=== PATIENT | female | born 1945 | race African-American/Black ===

== ENCOUNTER → 2017-03-20 | Outpatient (CLI) | payer MEDICARE ==
--- NOTE | 2017-03-20 08:42 | RAD ---
Indication claudication. Grayscale color Doppler and spectral imaging was performed targeted to the major arteries of the lower extremities. On the right there is a normal triphasic waveform in the common femoral artery. Proximally in the superficial femoral artery there is a normal triphasic waveform. The mid and distal superficial femoral artery have biphasic waveforms indicative of relatively mild disease proximally in the SFA. A biphasic waveform is seen in the popliteal artery. Biphasic waveforms are seen in the posterior tibial artery proximally and distally with a biphasic waveform in the peroneal and the anterior tibial and dorsal pedal arteries. On the left a biphasic waveform is seen in the common femoral artery indicative of a component of inlet disease. This transitions to a triphasic waveform in the proximal SFA. In the mid and distal SFA there are biphasic waveforms. Similar biphasic waveform is seen in the popliteal artery. The posterior tibial artery proximally and distally is biphasic as is the peroneal. The anterior tibial artery and dorsal pedal arteries are both biphasic. IMPRESSION: High-grade arterial stenosis is not seen in the major arterial vessels of either lower extremity. There is evidence for relatively mild disease in the right superficial femoral artery. There is likely mild inlet disease on the left
--- NOTE | 2017-03-20 13:10 | RAD ---
DATE: 03/20/2017 EXAM: DIGITAL SCREEN BILAT W/CAD HISTORY: Screening COMPARISON: None. This is new baseline. This study was interpreted with the benefit of Computerized Aided Detection (CAD). FINDINGS: Breast Density: FATTY The Breast Parenchyma is primarily fatty replaced. Breast parenchyma level density A.. There are possible punctate calcifications in the left breast, slightly lateral to the nipple, in the B position. A spot compression magnification image is suggested. A definite corresponding finding is not seen on the MLO view. The punctate areas of increased density may be artifactual. They could be vascular IMPRESSION.: Possible calcifications left breast. Additional imaging suggested as outlined above BI-RADS CATEGORY: 0 INCOMPLETE: NEED ADDITIONAL IMAGING EVAULATION AND/OR PRIOR MAMMOGRAMS FOR COMPARISON RECOMMENDED FOLLOW-UP: ADD ADDITIONAL IMAGING PQRS compliance statement: Patient information was entered into a reminder system with a target due date soon for the next mammogram. Mammography is a sensitive method for finding small breast cancers, but it does not detect them all and is not a substitute for careful clinical examination. A negative mammogram does not negate a clinically suspicious finding and should not result in delay in biopsying a clinically suspicious abnormality. "Our facility is accredited by the [employer] Mammography Program."
== END | disposition home or self-care (01) ==
LOC: US 06:45
PROVIDERS: ATTEND Family Medicine
DX: Z12.31 Encounter for screening mammogram for malignant neoplasm of breast (principal); I73.9 Peripheral vascular disease, unspecified
CPT/HCPCS: 93925; G0202; 77067

== ENCOUNTER → 2017-04-03 | Outpatient (CLI) | payer MEDICARE, OTHER ==
--- NOTE | 2017-04-03 10:37 | RAD ---
DATE: 04/03/2017 EXAM: DIGITAL DIAGNOSTIC LT HISTORY: Suspicious screening study COMPARISON: 03/20/2017 This study was interpreted with the benefit of Computerized Aided Detection (CAD). The breast parenchyma is primarily fatty replaced. Breast parenchyma level density A. FINDINGS: A spot compression magnification view of the left breast demonstrates no suspicious microcalcifications. The appearance on the screening study in this region was presumably artifactual. A straight mediolateral view of the left breast demonstrates a couple of scattered benign type calcifications. No suspicious microcalcifications are identified. IMPRESSION: There is no mammographic evidence of malignancy in the left breast. BI-RADS CATEGORY: 2 BENIGN FINDING(S) RECOMMENDED FOLLOW-UP: 12M 12 MONTH FOLLOW-UP PQRS compliance statement: Patient information was entered into a reminder system with a target due date for the next mammogram. Mammography is a sensitive method for finding small breast cancers, but it does not detect them all and is not a substitute for careful clinical examination. A negative mammogram does not negate a clinically suspicious finding and should not result in delay in biopsying a clinically suspicious abnormality. "Our facility is accredited by the [employer] Mammography Program."
== END | disposition home or self-care (01) ==
LOC: MAMMO 10:07
PROVIDERS: ATTEND Family Medicine
DX: R92.8 Other abnormal and inconclusive findings on diagnostic imaging of breast (principal)
CPT/HCPCS: G0206; 77065

== ENCOUNTER 2018-03-01 20:59 | Inpatient (IN) | payer MEDICARE, OTHER ==
[~2018-03-01] VITALS: Ht 175.3 cm; Wt 102.1 kg
[2018-03-01 23:06] LABS: BASO # 0.1 x10^3/uL (0.0-0.2); BASO % 1 % (0-3); EOS # 0.1 x10^3/uL (0.0-0.7); EOS % 1 % (0-3); HEMATOCRIT 40.8 % (36.0-47.0); HEMOGLOBIN 13.9 g/dL (12.0-15.5); LYMPH # 1.9 x10^3/uL (1.0-4.8); LYMPH % 22 % (24-48); MEAN CORPUSCULAR HEMOGLOBIN 30 pg (25-35); MEAN CORPUSCULAR HGB CONC 34 g/dL (31-37); MEAN CORPUSCULAR VOLUME 88 fL (79-100); MONO # 0.6 x10^3/uL (0.0-1.1); MONO % 7 % (0-9); NEUT % 70 % (31-73); PLATELET COUNT 248 x10^3/uL (140-400); RED BLOOD COUNT 4.64 x10^6/uL (3.50-5.40); RED CELL DISTRIBUTION WIDTH 14.5 % (11.5-14.5); WHITE BLOOD COUNT 8.6 x10^3/uL (4.0-11.0)
[2018-03-01] MEDS ORDERED: IV NORMAL SALINE 1000ML BAG 1,000 ML IV ONE (23:30)
--- NOTE | 2018-03-01 23:51 | RAD ---
CT HEAD WO CONTRAST Indication: syncope, no priors Exposure: One or more of the following individualized dose reduction techniques were utilized for this examination: 1. Automated exposure control 2. Adjustment of the mA and/or kV according to patient size 3. Use of iterative reconstruction technique. Comparison: None are available. Contrast: None FINDINGS: Posterior fossa is unremarkable. No evidence of acute intracranial hemorrhage or abnormal extra-axial fluid collection. No evidence of mass effect or midline shift. Ventricles are symmetric in size and configuration. Parsons-white matter distinction is intact. Visualized orbits are unremarkable. Visualized paranasal sinuses and mastoids are clear. No acute calvarial abnormality. Impression:Negative for acute intracranial hemorrhage or mass effect. Electronically signed by: Broderick Valle MD (03/01/2018 11:47 PM) [facility]
[2018-03-02] VITALS (7 sets, daily range): BP systolic 132–162; BP diastolic 60–100
[2018-03-02 00:54] LABS: CALCIUM 9.9 mg/dL (8.5-10.1); CREATININE 0.8 mg/dL (0.6-1.0); GFR 85.8
[2018-03-02 01:00] LABS: ALBUMIN 4.3 g/dL (3.4-5.0); ALBUMIN/GLOBULIN RATIO 1.2 (1.0-1.7); MAGNESIUM 1.9 mg/dL (1.8-2.4); TOTAL BILIRUBIN 0.4 mg/dL (0.2-1.0); TOTAL PROTEIN 7.8 g/dL (6.4-8.2)
--- NOTE | 2018-03-02 01:02 | PHYS DOC ---
Past Medical History Past Medical History: Diabetes-Type II, Hypertension Past Surgical History: Appendectomy, Other Additional Past Surgical Histo: R. LEG Alcohol Use: Occasionally Drug Use: None Adult General Chief Complaint Chief Complaint: SYNCOPE HPI HPI 72-year-old female presents with report of syncopal episode which occurred approximately at 2100 this evening. She reports she was playing cards in her home where he was significantly hot. Patient reports she ended up going outside and subsequently ended up passing out. Denies chest pain. Denies headache. Denies fever or chills. Denies dysuria. Patient did report some dizziness and lightheadedness. Denies leg swelling or calf tenderness. Review of Systems Review of Systems Constitutional: Denies fever or chills, reports generalized weakness. Eyes: Denies change in visual acuity, redness, or eye pain [] HENT: Denies nasal congestion or sore throat [] Respiratory: Denies cough or shortness of breath [] Cardiovascular: Denies chest pain; reports syncopal episode GI: Denies abdominal pain, nausea, vomiting, or diarrhea [] : Denies dysuria or hematuria [] Musculoskeletal: Denies back pain or joint pain [] Integument: Denies rash or skin lesions [] Neurologic: Denies headache, focal weakness or sensory changes; reports generalized weakness and syncopal episode Complete systems were reviewed and found to be within normal limits, except as documented in this note. Current Medications Current Medications Current Medications Medications (Trade) Dose Ordered Sig/Jamie Start Time Stop Time Status Last Admin Dose Admin Dextrose (Dextrose 50%-Water Syringe) 12.5 gm PRN Q15MIN PRN 03/02/18 01:15 Ondansetron HCl (Zofran) 4 mg PRN Q8HRS PRN 03/02/18 01:15 03/03/18 01:14 Sodium Chloride 1,000 ml @ 1,000 mls/hr 1X ONCE 03/01/18 23:30 03/02/18 00:29 DC 03/01/18 23:16 1,000 MLS/HR Allergies Allergies Allergies Coded Allergies Type Severity Reaction Last Updated Verified No Known Drug Allergies 03/01/18 No Physical Exam Physical Exam Constitutional: Well developed, well nourished, no acute distress, non-toxic appearance. [] HENT: Normocephalic, atraumatic, oropharynx moist, nose normal. [] Eyes: PERRL, EOMI, conjunctiva normal, no discharge. [] Neck: Normal range of motion, no tenderness, supple, no meningeal signs] Cardiovascular: Heart rate regular rhythm, no murmur [] Lungs & Thorax: Bilateral breath sounds clear to auscultation [] Abdomen: Soft, no tenderness, no masses, no pulsatile masses. [] Skin: Warm, dry, no erythema, no rash. [] Extremities: No tenderness, ROM intact, no edema. [] Neurologic: Alert and oriented X 3, normal motor function, normal sensory function, no focal deficits noted. Cerebellar function intact Psychologic: Affect normal, judgement normal, mood normal. [] Current Patient Data Vital Signs Vital Signs Date Time Temp Pulse Resp B/P (MAP) Pulse Ox O2 Delivery O2 Flow Rate FiO2 03/02/18 01:50 95 18 175/75 (108) 98 03/01/18 23:30 Room Air 03/01/18 22:57 98.4 98.4 Lab Values Laboratory Tests Test 03/01/18 23:00 03/02/18 00:30 03/02/18 01:25 White Blood Count 8.6 x10^3/uL (4.0-11.0) Red Blood Count 4.64 x10^6/uL (3.50-5.40) Hemoglobin 13.9 g/dL (12.0-15.5) Hematocrit 40.8 % (36.0-47.0) Mean Corpuscular Volume 88 fL (79-100) Mean Corpuscular Hemoglobin 30 pg (25-35) Mean Corpuscular Hemoglobin Concent 34 g/dL (31-37) Red Cell Distribution Width 14.5 % (11.5-14.5) Platelet Count 248 x10^3/uL (140-400) Neutrophils (%) (Auto) 70 % (31-73) Lymphocytes (%) (Auto) 22 % (24-48) L Monocytes (%) (Auto) 7 % (0-9) Eosinophils (%) (Auto) 1 % (0-3) Basophils (%) (Auto) 1 % (0-3) Neutrophils # (Auto) 6.0 x10^3uL (1.8-7.7) Lymphocytes # (Auto) 1.9 x10^3/uL (1.0-4.8) Monocytes # (Auto) 0.6 x10^3/uL (0.0-1.1) Eosinophils # (Auto) 0.1 x10^3/uL (0.0-0.7) Basophils # (Auto) 0.1 x10^3/uL (0.0-0.2) Sodium Level 138 mmol/L (136-145) Potassium Level 4.0 mmol/L (3.5-5.1) Chloride Level 101 mmol/L (98-107) Carbon Dioxide Level 25 mmol/L (21-32) Anion Gap 12 (6-14) Blood Urea Nitrogen 10 mg/dL (7-20) Creatinine 0.8 mg/dL (0.6-1.0) Estimated GFR (Cockcroft-Gault) 85.8 BUN/Creatinine Ratio 13 (6-20) Glucose Level 152 mg/dL (70-99) H Calcium Level 9.9 mg/dL (8.5-10.1) Magnesium Level 1.9 mg/dL (1.8-2.4) Total Bilirubin 0.4 mg/dL (0.2-1.0) Aspartate Amino Transferase (AST) 21 U/L (15-37) Alanine Aminotransferase (ALT) 30 U/L (14-59) Alkaline Phosphatase 86 U/L (46-116) Creatine Kinase 161 U/L (26-192) Creatine Kinase MB (Mass) 0.5 ng/mL (0.0-3.6) Creatine Kinase MB Relative Index 0.3 % (0-4) Troponin I Quantitative < 0.017 ng/mL (0.000-0.055) Total Protein 7.8 g/dL (6.4-8.2) Albumin 4.3 g/dL (3.4-5.0) Albumin/Globulin Ratio 1.2 (1.0-1.7) Urine Collection Type Unknown Urine Color Yellow Urine Clarity Clear Urine pH 5.5 Urine Specific [place] 1.010 Urine Protein Negative mg/dL (NEG-TRACE) Urine Glucose (UA) Negative mg/dL (NEG) Urine Ketones (Stick) Negative mg/dL (NEG) Urine Blood Negative (NEG) Urine Nitrite Negative (NEG) Urine Bilirubin Negative (NEG) Urine Urobilinogen Dipstick 0.2 mg/dL (0.2 mg/dL) Urine Leukocyte Esterase Large (NEG) Urine RBC 0 /HPF (0-2) Urine WBC 20-40 /HPF (0-4) Urine Squamous Epithelial Cells Mod /LPF Urine Renal Epithelial Cells Few /LPF Urine Bacteria Few /HPF (0-FEW) Urine Mucus Slight /LPF Laboratory Tests 03/01/18 23:00 Laboratory Tests 03/02/18 00:30 EKG EKG @ 2323: sinus arrythmia vs afib, baseline artifact noted, NO ST elevation noted Radiology/Procedures Radiology/Procedures PROCEDURE: CT HEAD WO CONTRAST CT HEAD WO CONTRAST Indication: syncope, no priors Exposure: One or more of the following individualized dose reduction techniques were utilized for this examination: 1. Automated exposure control 2. Adjustment of the mA and/or kV according to patient size 3. Use of iterative reconstruction technique. Comparison: None are available. Contrast: None FINDINGS: Posterior fossa is unremarkable. No evidence of acute intracranial hemorrhage or abnormal extra-axial fluid collection. No evidence of mass effect or midline shift. Ventricles are symmetric in size and configuration. Parsons-white matter distinction is intact. Visualized orbits are unremarkable. Visualized paranasal sinuses and mastoids are clear. No acute calvarial abnormality. Impression:Negative for acute intracranial hemorrhage or mass effect. Course & Med Decision Making Course & Med Decision Making Pertinent Labs and Imaging studies reviewed. (See chart for details) Patient presents with syncopal episode. Patient neurologically intact. NIHSS 0. EKG stable. CT head without acute process. Labs obtained and posted to chart. Troponin within normal limits. UA with signs of infection. Empiric antibiotics initiated. Patient requiring admission for further evaluation and treatment. Discussed with Dr. Hendrickson (PCP) who is in agreement with admission. Discussed findings and plan with patient and family, who acknowledge understanding and agreement. Dragon Disclaimer Dragon Disclaimer This electronic medical record was generated, in whole or in part, using a voice recognition dictation system. Departure Departure Impression: Primary Impression: Syncope Additional Impression: Acute UTI Disposition: ADMITTED INPATIENT Admitting Physician: Arnaldo Hendrickson Condition: STABLE Referrals: VELMA PADRON MD (PCP) Problem Qualifiers Primary Impression: Syncope Syncope type: unspecified Qualified Codes: R55 - Syncope and collapse ALIRIO SALDIVAR DO Mar 02, 2018 01:02
[2018-03-02] MEDS ORDERED: DEXTROSE 50% 25 GM / 50ML DISP.SYRIN. IV PRN (01:15)
[2018-03-02] MEDS ORDERED: ONDANSETRON PF 4 MG/2 ML VIAL. IV PRN (01:15)
[2018-03-02 01:35] LABS: BILIRUBIN,URINE NEGATIVE (NEG); CLARITY,URINE CLEAR; COLOR,URINE YELLOW; NITRITE,URINE NEGATIVE (NEG); PH,URINE 5.5; PROTEIN,URINE NEGATIVE (NEG-TRACE); UROBILINOGEN,URINE 0.2 mg/dL (0.2 mg/dL)
[2018-03-02 01:47] LABS: BACTERIA,URINE FEW /HPF (0-FEW); RBC,URINE 0 /HPF (0-2); SQUAMOUS EPITHELIAL CELL,UR MOD /LPF; WBC,URINE 20-40 /HPF (0-4)
--- NOTE | 2018-03-02 07:19 | EKG ---
[facility] [address] [place] [address] Test Date: 2018-03-01 Test Time: 23:23:26 Pat Name: CASSANDRA KAY Department: Room: 432 1 Gender: Female Flower Grader: : 1945 Requested By: ALIRIO SALDIVAR Order Number: [id number] Reading MD: Marty Barrett MD Measurements Intervals [place] Rate: 97 P: IA: QRS: 5 QRSD: 84 T: 65 QT: 370 QTc: 474 Interpretive Statements ATRIAL FIBRILLATION WITH CONTROLLED VENTRICULAR RESPONSE NON-SPECIFIC ST/T CHANGES Electronically Signed On 03-03-2018 10:06:17 CDT by Marty Barrett MD
[2018-03-02] MEDS ORDERED: ASPIRIN 325 MG TABLET PO ONE (08:00)
[2018-03-02] MEDS: INSULIN LISPRO 300 UNITS/3 ML INSULN.PEN. SQ SCH ×3 (08:00→17:00)
[2018-03-02] MEDS ORDERED: cefTRIAXone IV Push 1 GM VIAL. IVP SCH (09:00)
--- NOTE | 2018-03-02 09:04 | RAD ---
Chest AP portable at 2341: Reason for examination: Chest pain and syncope. The heart size is normal. Mediastinum is unremarkable. Lung barroso are clear. No acute bony abnormalities are seen. Impression: No acute cardiopulmonary disease. Electronically signed by: Alma Rosa Gregory MD (03/02/2018 9:00 AM) [facility]
[2018-03-02] MEDS: LOSARTAN POTASSIUM 50 MG TABLET. PO SCH (13:07)
[2018-03-02] MEDS: PIOGLITAZONE 15 MG TABLET. PO SCH (13:07)
[2018-03-02] MEDS: hydroCHLOROthiazide 25 MG TABLET PO SCH (13:07)
[2018-03-02] MEDS: amLODIPine BESYLATE 10 MG TABLET PO SCH (13:08)
[2018-03-02] MEDS: METOPROLOL TART IMMED RELEASE 50 MG TABLET. PO SCH ×2 (13:08→20:57)
--- NOTE | 2018-03-02 14:05 | HP ---
ADMIT DATE: 03/02/2018 ADMISSION DIAGNOSES: Syncope, possible urinary tract infection, possible sepsis. HISTORY OF PRESENT ILLNESS: This is a 72-year-old female who was playing cards at home last evening. She says it was somewhat hot. She got up to go outside and had a syncopal episode. She has no recollection of the episode. EMS was summoned and she was brought to the Emergency Room for further evaluation and treatment. She denies any recent lightheadedness or dizziness, although she thinks the heat may have something to do with her spell. She has not had any chest pain or cardiac symptoms. She has not had any recent neurologic symptoms. She denies any vertiginous symptoms. She did not have any nausea or vomiting. She sees Dr. England routinely in the office and has a routine appointment for next month. Since her last visit with Dr. England she had some shoulder pain, evaluated by Dr. Mendoza, thought to be tendinitis and responded to a cortisone shot. That was her left shoulder. She denies any left-sided chest type pain since though. PAST MEDICAL HISTORY: Significant for type 2 diabetes since 1990, hypertension, osteoarthritis, hyperlipidemia, vitamin D deficiency, and obesity. Her colonoscopy was done in 2013, Pneumovax in 2013 with Prevnar in 2016, DEXA 2014, mammogram 2016. PAST SURGICAL HISTORY: Includes appendectomy and ORIF right ankle 01/2015. FAMILY HISTORY: Mother is . SOCIAL HISTORY: She is a smoker, typically 5 cigarettes a day or less, or a pack a week. Alcohol, she stopped drinking in 2015. She is not and lives with her daughter. ALLERGIES: She has no known drug allergies. ROUTINE MEDICATIONS: Include glimepiride 4 mg b.i.d., amlodipine/valsartan 10/320 mg 1 daily, simvastatin 20 mg at bedtime, vitamin D 50,000 units weekly, metoprolol tartrate 100 mg b.i.d., metformin 1000 mg b.i.d., pioglitazone 15 mg daily, HCTZ 25 mg daily. REVIEW OF SYSTEMS: CONSTITUTIONAL: No fever, chills or weight loss. HEENT: No change in vision or hearing. CARDIAC: No recent chest pain or palpitation. PULMONARY: No cough or shortness of breath. GASTROINTESTINAL: No nausea, vomiting or change in bowels. GENITOURINARY: Denies dysuria, but UA is abnormal. MUSCULOSKELETAL: Mild arthritic changes of her shoulder and hip on prior x-rays. SKIN: No worrisome lesions. NEUROLOGIC: No prior episodes of syncope, no vertiginous symptoms, no seizure history. PHYSICAL EXAMINATION: VITAL SIGNS: She was tachycardic at 2:00 a.m. and 3:00 a.m. this morning, but she thinks that was getting settled into her room. Blood pressure has been elevated, most recently 154/82, respiratory rate is normal. Room air oxygen saturation is normal. GENERAL: She is in no acute distress, alert and oriented. HEENT: Unremarkable. Conjunctivae are clear. Ocular muscles are intact. No sinus congestion. Mucous membranes are moist. NECK: Supple, without mass or bruit. HEART: Regular rate and rhythm without murmur noted. LUNGS: Clear to auscultation. ABDOMEN: Soft, nondistended, nontender, without any masses. EXTREMITIES: All move appropriately. There is no clubbing, cyanosis or edema. MUSCULOSKELETAL: No effusions. SKIN: Normal turgor. NEUROLOGIC: Nonfocal. Cranial nerves are grossly intact. LABORATORY DATA: CBC is normal. Chemistries are unremarkable other than a blood sugar of 152 and 125. Troponin x 3 is negative. Urinalysis shows a large amount of leukocyte esterase and 20-40 wbc's, a few bacteria, but there is also moderate number of squamous epithelial cells, so it may be a contaminant. EKG does not show any acute changes. Chest x-ray is unremarkable. CT head is unremarkable. The paranasal sinuses and mastoids are clear. ASSESSMENT: 1. Syncope, unclear etiology. 2. Possible urinary tract infection. 3. Hypertension. 4. Type 2 diabetes. 5. Osteoarthritis. 6. Hyperlipidemia. 7. Vitamin D deficiency. PLAN: She is admitted. 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 We will check an echo and get a Cardiology consult. We will resume her home medications. Awaiting urine culture, she is being covered with ceftriaxone in the meantime. W Ewa MACIAS MD DR: GERI/mariela JOB#: [id number] / [id number]
[2018-03-02] MEDS: GLIMEPIRIDE 2 MG TABLET. PO SCH (17:53)
[2018-03-02] MEDS: AMOXICILLIN/K CLAV 875/125MG TABLET. PO SCH (20:56)
[2018-03-02] MEDS: LACTOBACILLUS RHAMNOSUS GG 1 CAPSULE. PO SCH (20:56)
[2018-03-02] MEDS ORDERED: SIMVASTATIN 20 MG TABLET PO SCH (21:00)
[2018-03-03 01:32] LABS: CHOLESTEROL/HDL RATIO 2.3
[2018-03-03 03:00] VITALS: BP 132/58
[2018-03-03 07:00] VITALS: BP 165/70
--- NOTE | 2018-03-03 07:30 | PDOC ---
PROGRESS NOTES Subjective Subjective Patient without complaint, feels fine. No lightheadedness. Objective Objective Vital Signs Date Time Temp Pulse Resp B/P (MAP) Pulse Ox O2 Delivery O2 Flow Rate FiO2 03/03/18 03:00 97.7 59 18 132/58 (82) 96 Room Air 97.7 Intake and Output 03/03/18 07:01 Intake Total 240 ml Balance 240 ml Intake Oral 240 ml # Voids 8 Physical Exam Abdomen: Normal bowel sounds, Soft, No tenderness Heart: Regular rate Extremities: No edema General: Alert, Oriented X3, No acute distress Lungs: Clear to auscultation Assessment Assessment Problems Medical Problems: (1) Acute UTI Status: Acute (2) Syncope Status: Acute Plan Plan of Care 1. Syncope - stable since admission. Telemetry and lab unremarkable and no further symptom. Dr Schwartz plans echo and tilt-table today, anticipate patient may be ready for discharge home later today if testing is WNL. 2. DM2 - well controlled, continue home meds. 3. HTN - controlled, continue present meds. 4. possible UTI - UA with WBC's but also squamous cells and patient asymptomatic. Await final urine culture results. 5. hyperlipidemia - well controlled, continue her usual statin. Comment Review of Relevant I have reviewed the following items daina (where applicable) has been applied. Labs Laboratory Tests Test 03/01/18 23:00 03/02/18 00:30 03/02/18 01:25 03/02/18 04:10 White Blood Count 8.6 x10^3/uL (4.0-11.0) Red Blood Count 4.64 x10^6/uL (3.50-5.40) Hemoglobin 13.9 g/dL (12.0-15.5) Hematocrit 40.8 % (36.0-47.0) Mean Corpuscular Volume 88 fL (79-100) Mean Corpuscular Hemoglobin 30 pg (25-35) Mean Corpuscular Hemoglobin Concent 34 g/dL (31-37) Red Cell Distribution Width 14.5 % (11.5-14.5) Platelet Count 248 x10^3/uL (140-400) Neutrophils (%) (Auto) 70 % (31-73) Lymphocytes (%) (Auto) 22 % (24-48) Monocytes (%) (Auto) 7 % (0-9) Eosinophils (%) (Auto) 1 % (0-3) Basophils (%) (Auto) 1 % (0-3) Neutrophils # (Auto) 6.0 x10^3uL (1.8-7.7) Lymphocytes # (Auto) 1.9 x10^3/uL (1.0-4.8) Monocytes # (Auto) 0.6 x10^3/uL (0.0-1.1) Eosinophils # (Auto) 0.1 x10^3/uL (0.0-0.7) Basophils # (Auto) 0.1 x10^3/uL (0.0-0.2) Sodium Level 138 mmol/L (136-145) Potassium Level 4.0 mmol/L (3.5-5.1) Chloride Level 101 mmol/L (98-107) Carbon Dioxide Level 25 mmol/L (21-32) Anion Gap 12 (6-14) Blood Urea Nitrogen 10 mg/dL (7-20) Creatinine 0.8 mg/dL (0.6-1.0) Estimated GFR (Cockcroft-Gault) 85.8 BUN/Creatinine Ratio 13 (6-20) Glucose Level 152 mg/dL (70-99) Calcium Level 9.9 mg/dL (8.5-10.1) Magnesium Level 1.9 mg/dL (1.8-2.4) Total Bilirubin 0.4 mg/dL (0.2-1.0) Aspartate Amino Transf (AST/SGOT) 21 U/L (15-37) Alanine Aminotransferase (ALT/SGPT) 30 U/L (14-59) Alkaline Phosphatase 86 U/L (46-116) Creatine Kinase 161 U/L (26-192) Creatine Kinase MB (Mass) 0.5 ng/mL (0.0-3.6) Creatine Kinase MB Relative Index 0.3 % (0-4) Troponin I Quantitative < 0.017 ng/mL (0.000-0.055) < 0.017 ng/mL (0.000-0.055) Total Protein 7.8 g/dL (6.4-8.2) Albumin 4.3 g/dL (3.4-5.0) Albumin/Globulin Ratio 1.2 (1.0-1.7) Urine Collection Type Unknown Urine Color Yellow Urine Clarity Clear Urine pH 5.5 Urine Specific Bethany 1.010 Urine Protein Negative mg/dL (NEG-TRACE) Urine Glucose (UA) Negative mg/dL (NEG) Urine Ketones (Stick) Negative mg/dL (NEG) Urine Blood Negative (NEG) Urine Nitrite Negative (NEG) Urine Bilirubin Negative (NEG) Urine Urobilinogen Dipstick 0.2 mg/dL (0.2 mg/dL) Urine Leukocyte Esterase Large (NEG) Urine RBC 0 /HPF (0-2) Urine WBC 20-40 /HPF (0-4) Urine Squamous Epithelial Cells Mod /LPF Urine Renal Epithelial Cells Few /LPF Urine Bacteria Few /HPF (0-FEW) Urine Mucus Slight /LPF Triglycerides Level 83 mg/dL (0-150) Cholesterol Level 145 mg/dL (0-200) LDL Cholesterol, Calculated 66 mg/dL (0-100) VLDL Cholesterol, Calculated 17 mg/dL (0-40) Non-HDL Cholesterol Calculated 83 mg/dL (0-129) HDL Cholesterol 62 mg/dL (40-60) Cholesterol/HDL Ratio 2.3 Test 03/02/18 07:20 03/02/18 07:56 03/02/18 11:52 03/02/18 20:25 Troponin I Quantitative < 0.017 ng/mL (0.000-0.055) Thyroid Stimulating Hormone (TSH) 0.474 uIU/mL (0.358-3.74) Glucose (Fingerstick) 125 mg/dL (70-99) 165 mg/dL (70-99) 191 mg/dL (70-99) Laboratory Tests Test 03/02/18 07:56 03/02/18 11:52 03/02/18 20:25 Glucose (Fingerstick) 125 mg/dL (70-99) 165 mg/dL (70-99) 191 mg/dL (70-99) Medications Current Medications Sodium Chloride 1,000 ml @ 1,000 mls/hr 1X ONCE IV Last administered on at 23:16; Start 03/01/18 at 23:30; Stop 03/02/18 at 00:29; Status DC Ondansetron HCl (Zofran) 4 mg PRN Q8HRS PRN IV NAUSEA/VOMITING 1ST CHOICE; Start 03/02/18 at 01:15; Stop 03/03/18 at 01:15; Status DC Insulin Human Lispro (HumaLOG) 0-5 UNITS TIDWMEALS SQ Last administered on 03/02at 13:17; Start 03/02/18 at 08:00 Dextrose (Dextrose 50%-Water Syringe) 12.5 gm PRN Q15MIN PRN IV SEE COMMENTS; Start 03/02/18 at 01:15 Ceftriaxone Sodium 1 gm/ Dextrose 50 ml @ 100 mls/hr Q24H IV ; Start 03/02/18 at 07:30; Status UNV Aspirin (Odalis Aspirin) 325 mg 1X ONCE PO Last administered on 03/02/18at 10:18 ; Start 03/02/18 at 08:00; Stop 03/02/18 at 08:01; Status DC Ceftriaxone Sodium (Rocephin) 1 gm Q24H IVP Last administered on 03/02/18at 10: 19; Start 03/02/18 at 09:00; Stop 03/02/18 at 15:56; Status DC Amlodipine Besylate (Norvasc) 10 mg DAILY PO Last administered on 03/02/18at 13: 08; Start 03/02/18 at 12:00 Losartan Potassium (Cozaar) 100 mg DAILY PO Last administered on 03/02/18at 13: 07; Start 03/02/18 at 12:00 Simvastatin (Zocor) 20 mg HS PO Last administered on 03/02/18at 20:57; Start at 21:00 Glimepiride (Amaryl) 4 mg BIDWMEALS PO Last administered on 03/02/18at 17:53; Start 03/02/18 at 17:00 Metoprolol Tartrate (Lopressor) 100 mg BID PO Last administered on 03/02/18at 20 :57; Start 03/02/18 at 12:00 Pioglitazone HCl (Actos) 15 mg DAILY PO Last administered on 03/02/18at 13:07; Start 03/02/18 at 12:30 Hydrochlorothiazide (Hydrodiuril) 25 mg DAILY PO Last administered on at 13:07; Start 03/02/18 at 12:30 Lactobacillus Rhamnosus (Culturelle) 1 cap BID PO Last administered on at 20:56; Start 03/02/18 at 21:00 Amoxicillin/ Clavulanate Potassium (Augmentin 875/ 125mg) 1 tab BID PO Last administered on 03/02/18at 20:56; Start 03/02/18 at 21:00 Vitals/I & O Vital Sign - Last 24 Hours 03/02/18 03/02/18 03/02/18 03/02/18 08:00 11:00 13:07 13:08 Temp 98.0 98.0 Pulse 78 78 78 Resp 18 B/P (MAP) 154/76 (102) 154/76 154/76 Pulse Ox 99 O2 Delivery Room Air Room Air 03/02/18 03/02/18 03/02/18 03/02/18 13:08 15:00 19:00 20:05 Temp 98.2 98.1 98.2 98.1 Pulse 78 68 73 Resp 18 18 B/P (MAP) 154/76 151/78 (102) 161/78 (105) Pulse Ox 99 98 O2 Delivery Room Air Room Air Room Air 03/02/18 03/02/18 03/03/18 20:57 23:00 03:00 Temp 97.7 97.7 97.7 97.7 Pulse 68 58 59 Resp 18 18 B/P (MAP) 151/78 132/60 (84) 132/58 (82) Pulse Ox 99 96 O2 Delivery Room Air Room Air Intake and Output 03/02/18 03/02/18 03/03/18 15:01 23:01 07:01 Intake Total 240 ml Balance 240 ml VELMA PADRON MD Mar 03, 2018 07:30
[2018-03-03] MEDS: INSULIN LISPRO 300 UNITS/3 ML INSULN.PEN. SQ SCH ×2 (08:00→12:00)
[2018-03-03] MEDS: GLIMEPIRIDE 2 MG TABLET. PO SCH (08:29)
[2018-03-03] MEDS: AMOXICILLIN/K CLAV 875/125MG TABLET. PO SCH (08:29)
[2018-03-03] MEDS: PIOGLITAZONE 15 MG TABLET. PO SCH (08:29)
[2018-03-03] MEDS: LACTOBACILLUS RHAMNOSUS GG 1 CAPSULE. PO SCH (08:29)
[2018-03-03] MEDS: METOPROLOL TART IMMED RELEASE 50 MG TABLET. PO SCH (08:30)
[2018-03-03] MEDS: hydroCHLOROthiazide 25 MG TABLET PO SCH (08:30)
[2018-03-03] MEDS: LOSARTAN POTASSIUM 50 MG TABLET. PO SCH (08:30)
[2018-03-03] MEDS: amLODIPine BESYLATE 10 MG TABLET PO SCH (08:30)
--- NOTE | 2018-03-03 12:05 | CARD ---
MR#: [id number] Date of Study: 03/03/2018 Ordering Physician: JA SCHWARTZ Referring Physician: Kristina SHEPPARD: Allie Donato RN APPROVED REPORT EXAM Tilt Table syncope Attending Nurse: Allie Donato RN HISTORY The Patient is a 72 year-old female with a history of DM and a recent syncopal episode INDICATIONS 1039 laid down flat PROCEDURE After explaining the risks, benefits, and alternative options, informed consent was obtained from the patient. Base - lineRhythm: SinusHR: 63 bpmBP: 161/51lbPcJ7 Sat: 98 % [id number]: SinusHR: 61 bpmBP: 158/49htYlM2 Sat: 97 % Vtck9250Rfgwhg: SinusHR: 62 bpmBP: 166/94edLeH3 Sat: 100 % 80' [id number]: 75 bpm 80' Bvxw9879Gainic: Sinus with pvcHR: 87 bpmBP: 156/69ddXhM8 Sat: 98 % 80' Peal9194Ivlbqp: Sinus with pvcHR: 99 bpmBP: 161/06tnSsU0 Sat: 98 % 80' Tilt11:25Rhythm: Sinus with pvcHR: 108 bpmBP: 153/73xjFcH6 Sat: 98 % 80' Qeao4069Krjzux: Sinus with pvcHR: 108 bpmBP: 155/97xdHwR8 Sat: 98 % 80' Gylh1486Pkwupy: SinusHR: 113 bpmBP: 146/91erAyT4 Sat: 98 % 80' Gfmz1587Fgqatr: SinusHR: 114 bpmBP: 145/66jqBiE7 Sat: 98 % Ybsi7156Wpjzir: SinusHR: 87 bpmBP: 141/16woWiK3 Sat: 98 % CONCLUSION No dizziness or syncope noted, Dr Schwartz in attendance throughout. This is a negative Tilt Table Test for neurocardiogenic syncope Signed by : Ja Schwartz MD Electronically Approved : 03/03/2018 12:03:45
[2018-03-03 15:00] VITALS: BP 147/84
--- NOTE | 2018-03-03 17:19 | CARD ---
MR#: [id number] Date of Study: 03/03/2018 Ordering Physician: Celso MACIAS, Referring Physician: Celso MACIAS Tech: Jaycee Dukes RDCS APPROVED REPORT EXAM: Two-dimensional and M-mode echocardiogram with Doppler and color Doppler. Other Information Quality : Good INDICATION Syncope 2D DIMENSIONS RVDd3.6 (2.9-3.5cm)Left Atrium(2D)4.2 (1.6-4.0cm) IVSd1.5 (0.7-1.1cm)Aortic Root(2D)2.5 (2.0-3.7cm) LVDd4.5 (3.9-5.9cm)LVOT Diameter2.0 (1.8-2.4cm) PWd1.3 (0.7-1.1cm)LVDs3.0 (2.5-4.0cm) FS (%) 33.1 %SV56.2 ml LVEF(%)60.0 (>50%) Aortic Valve AoV Peak Chay.147.5cm/sAoV VTI35.5cm AO Peak GR.8.7mmHgLVOT Peak Chay.88.0cm/s LVOT VTI 19.97cmAO Mean GR.5mmHg OK (VMAX)1.63yx8WPR (VTI)1.81cm2 Mitral Valve MV E Sofnwiyj23.0cm/sMV DECEL MXPG200sz MV A Uapcdszo57.1cm/sMV SGV14ue E/A Ratio0.8MVA (PHT)2.31cm2 TDI E/Lateral E'12.6E/Medial E'7.8 Pulmonary Vein S1 Bqselkaz35.9cm/sD2 Vnelawyp30.9cm/s LEFT VENTRICLE The left ventricle is normal size. There is mild concentric left ventricular hypertrophy. The left ve ntricular systolic function is normal and the ejection fraction is 60%. There is normal LV segmental wall motion. Transmitral Doppler flow pattern is Grade I-abnormal relaxation pattern. RIGHT VENTRICLE The right ventricle is normal size. The right ventricular systolic function is normal. ATRIA The left atrium is mildly dilated. The right atrium size is normal. The interatrial septum is intact with no evidence for an atrial septal defect or patent foramen ovale as noted on 2-D or Doppler imagi ng. AORTIC VALVE The aortic valve is calcified but opens well. Doppler and Color Flow revealed no significant aortic r egurgitation. There is no significant aortic valvular stenosis. MITRAL VALVE The mitral valve is calcified but opens well. There is no evidence of mitral valve prolapse. There is no mitral valve stenosis. Doppler and Color-flow revealed trace mitral regurgitation. TRICUSPID VALVE The tricuspid valve is normal in structure and function. Doppler and Color Flow revealed no tricuspid valve regurgitation noted. There is no tricuspid valve stenosis. PULMONIC VALVE The pulmonic valve is not well visualized. Doppler and Color Flow revealed trace pulmonic valvular re gurgitation. There is no pulmonic valvular stenosis. GREAT VESSELS The aortic root is normal in size. The ascending aorta is normal in size. The IVC was not visualized. PERICARDIAL EFFUSION There is no evidence of significant pericardial effusion. Critical Notification Critical Value: No <Conclusion> The left ventricular systolic function is normal and the ejection fraction is 60%. Transmitral Doppler flow pattern is Grade I-abnormal relaxation pattern. There is mild concentric left ventricular hypertrophy. The left atrium is mildly dilated. The right atrium size is normal. The aortic valve is calcified but opens well. Doppler and Color-flow revealed trace mitral regurgitation. The tricuspid valve is normal in structure and function. The pulmonic valve is not well visualized. There is no evidence of significant pericardial effusion. Signed by : Ja Schwartz MD Electronically Approved : 03/03/2018 17:18:06
--- NOTE | 2018-03-03 18:56 | PDOC2 ---
CONSULT Date of Consult Date of Consult DATE: 03/03/18 TIME: 18:49 Reason for Consult Reason for Consult: Syncope Referring Physician Referring Physician: Dr England Identification/Chief Complaint Chief Complaint Syncope History of Present Illness Reason for Visit: This patient is a very pleasant 72-year-old lady that was at a friend's house playing alisha and she was feeling very hot she walked outside and then passed out this people that were with her were able to hold her up and is her into a chair but she was unresponsive and she had no recollection of passing out. The patient was brought in to the ER where she was found to be alert and responsive by then and in sinus rhythm. The patient has a known history of diabetes, hypertension, and is a smoker. At the time that I saw her she denies having any chest pains. The patient denies any histories of palpitations or other cardiac problems. Past Medical History Cardiovascular: HTN Pulmonary: Bronchitis, COPD Musculoskeletal: Osteoarthritis Current Problem List Problem List Problems Medical Problems: (1) Acute UTI Status: Acute (2) Syncope Status: Acute Current Medications Current Medications Current Medications Sodium Chloride 1,000 ml @ 1,000 mls/hr 1X ONCE IV Last administered on at 23:16; Start 03/01/18 at 23:30; Stop 03/02/18 at 00:29; Status DC Ondansetron HCl (Zofran) 4 mg PRN Q8HRS PRN IV NAUSEA/VOMITING 1ST CHOICE; Start 03/02/18 at 01:15; Stop 03/03/18 at 01:15; Status DC Insulin Human Lispro (HumaLOG) 0-5 UNITS TIDWMEALS SQ Last administered on 03/02at 13:17; Start 03/02/18 at 08:00 Dextrose (Dextrose 50%-Water Syringe) 12.5 gm PRN Q15MIN PRN IV SEE COMMENTS; Start 03/02/18 at 01:15 Ceftriaxone Sodium 1 gm/ Dextrose 50 ml @ 100 mls/hr Q24H IV ; Start 03/02/18 at 07:30; Status UNV Aspirin (Odalis Aspirin) 325 mg 1X ONCE PO Last administered on 03/02/18at 10:18 ; Start 03/02/18 at 08:00; Stop 03/02/18 at 08:01; Status DC Ceftriaxone Sodium (Rocephin) 1 gm Q24H IVP Last administered on 03/02/18 10: 19; Start 03/02/18 at 09:00; Stop 03/02/18 at 15:56; Status DC Amlodipine Besylate (Norvasc) 10 mg DAILY PO Last administered on 03/03/18 08: 30; Start 03/02/18 at 12:00 Losartan Potassium (Cozaar) 100 mg DAILY PO Last administered on 03/02/18 13: 07; Start 03/02/18 at 12:00 Simvastatin (Zocor) 20 mg HS PO Last administered on 03/02/18 20:57; Start at 21:00 Glimepiride (Amaryl) 4 mg BIDWMEALS PO Last administered on 03/03/18 08:29; Start 03/02/18 at 17:00 Metoprolol Tartrate (Lopressor) 100 mg BID PO Last administered on 03/02/18 20 :57; Start 03/02/18 at 12:00 Pioglitazone HCl (Actos) 15 mg DAILY PO Last administered on 03/03/18 08:29; Start 03/02/18 at 12:30 Hydrochlorothiazide (Hydrodiuril) 25 mg DAILY PO Last administered on 13:07; Start 03/02/18 at 12:30 Lactobacillus Rhamnosus (Culturelle) 1 cap BID PO Last administered on 08:29; Start 03/02/18 at 21:00 Amoxicillin/ Clavulanate Potassium (Augmentin 875/ 125mg) 1 tab BID PO Last administered on 03/03/18 08:29; Start 03/02/18 at 21:00 Active Scripts Active No Active Prescriptions or Reported Medications Allergies Allergies: Coded Allergies: No Known Drug Allergies (Unverified , 03/01/18) Physical Exam General: Alert, Oriented X3, Cooperative HEENT: Atraumatic, PERRLA, Other (no bruits) Lungs: Clear to auscultation Heart: Regular rate, Normal S1, Normal S2 Abdomen: Normal bowel sounds, Soft Extremities: No edema Psych/Mental Status: Mental status NL Vitals VITALS Vital Signs Date Time Temp Pulse Resp B/P (MAP) Pulse Ox O2 Delivery O2 Flow Rate FiO2 03/03/18 15:00 97.8 73 16 147/84 (105) 91 Room Air 97.8 Labs Labs Laboratory Tests Test 03/01/18 23:00 03/02/18 00:30 03/02/18 01:25 03/02/18 04:10 White Blood Count 8.6 x10^3/uL (4.0-11.0) Red Blood Count 4.64 x10^6/uL (3.50-5.40) Hemoglobin 13.9 g/dL (12.0-15.5) Hematocrit 40.8 % (36.0-47.0) Mean Corpuscular Volume 88 fL (79-100) Mean Corpuscular Hemoglobin 30 pg (25-35) Mean Corpuscular Hemoglobin Concent 34 g/dL (31-37) Red Cell Distribution Width 14.5 % (11.5-14.5) Platelet Count 248 x10^3/uL (140-400) Neutrophils (%) (Auto) 70 % (31-73) Lymphocytes (%) (Auto) 22 % (24-48) Monocytes (%) (Auto) 7 % (0-9) Eosinophils (%) (Auto) 1 % (0-3) Basophils (%) (Auto) 1 % (0-3) Neutrophils # (Auto) 6.0 x10^3uL (1.8-7.7) Lymphocytes # (Auto) 1.9 x10^3/uL (1.0-4.8) Monocytes # (Auto) 0.6 x10^3/uL (0.0-1.1) Eosinophils # (Auto) 0.1 x10^3/uL (0.0-0.7) Basophils # (Auto) 0.1 x10^3/uL (0.0-0.2) Sodium Level 138 mmol/L (136-145) Potassium Level 4.0 mmol/L (3.5-5.1) Chloride Level 101 mmol/L (98-107) Carbon Dioxide Level 25 mmol/L (21-32) Anion Gap 12 (6-14) Blood Urea Nitrogen 10 mg/dL (7-20) Creatinine 0.8 mg/dL (0.6-1.0) Estimated GFR (Cockcroft-Gault) 85.8 BUN/Creatinine Ratio 13 (6-20) Glucose Level 152 mg/dL (70-99) Calcium Level 9.9 mg/dL (8.5-10.1) Magnesium Level 1.9 mg/dL (1.8-2.4) Total Bilirubin 0.4 mg/dL (0.2-1.0) Aspartate Amino Transf (AST/SGOT) 21 U/L (15-37) Alanine Aminotransferase (ALT/SGPT) 30 U/L (14-59) Alkaline Phosphatase 86 U/L (46-116) Creatine Kinase 161 U/L (26-192) Creatine Kinase MB (Mass) 0.5 ng/mL (0.0-3.6) Creatine Kinase MB Relative Index 0.3 % (0-4) Troponin I Quantitative < 0.017 ng/mL (0.000-0.055) < 0.017 ng/mL (0.000-0.055) Total Protein 7.8 g/dL (6.4-8.2) Albumin 4.3 g/dL (3.4-5.0) Albumin/Globulin Ratio 1.2 (1.0-1.7) Urine Collection Type Unknown Urine Color Yellow Urine Clarity Clear Urine pH 5.5 Urine Specific Phillips 1.010 Urine Protein Negative mg/dL (NEG-TRACE) Urine Glucose (UA) Negative mg/dL (NEG) Urine Ketones (Stick) Negative mg/dL (NEG) Urine Blood Negative (NEG) Urine Nitrite Negative (NEG) Urine Bilirubin Negative (NEG) Urine Urobilinogen Dipstick 0.2 mg/dL (0.2 mg/dL) Urine Leukocyte Esterase Large (NEG) Urine RBC 0 /HPF (0-2) Urine WBC 20-40 /HPF (0-4) Urine Squamous Epithelial Cells Mod /LPF Urine Renal Epithelial Cells Few /LPF Urine Bacteria Few /HPF (0-FEW) Urine Mucus Slight /LPF Triglycerides Level 83 mg/dL (0-150) Cholesterol Level 145 mg/dL (0-200) LDL Cholesterol, Calculated 66 mg/dL (0-100) VLDL Cholesterol, Calculated 17 mg/dL (0-40) Non-HDL Cholesterol Calculated 83 mg/dL (0-129) HDL Cholesterol 62 mg/dL (40-60) Cholesterol/HDL Ratio 2.3 Test 03/02/18 07:20 03/02/18 07:56 03/02/18 11:52 03/02/18 20:25 Troponin I Quantitative < 0.017 ng/mL (0.000-0.055) Thyroid Stimulating Hormone (TSH) 0.474 uIU/mL (0.358-3.74) Glucose (Fingerstick) 125 mg/dL (70-99) 165 mg/dL (70-99) 191 mg/dL (70-99) Test 03/03/18 07:43 03/03/18 16:36 Glucose (Fingerstick) 145 mg/dL (70-99) 157 mg/dL (70-99) Laboratory Tests Test 03/02/18 20:25 03/03/18 07:43 03/03/18 16:36 Glucose (Fingerstick) 191 mg/dL (70-99) 145 mg/dL (70-99) 157 mg/dL (70-99) Assessment/Plan Assessment/Plan Patient comes in following a syncopal episode. She has no significant cardiac history but does have risk factors and she is a diabetic. An echocardiogram was done that showed a normal left ventricular systolic function and no significant valvular disease. In addition to that a tilt table test was done and it was negative for neurocardiogenic syncope. At this point the patient has been in sinus rhythm since admission and she does not appear to be having any dysrhythmias. Perhaps the syncope may have been related to either a problem or to hypoglycemia. From a cardiac standpoint she may be discharged to be followed as an outpatient. Thank you very much for asking me to participate in the care of this patient KERRY CHAWLA MD Mar 03, 2018 18:56
[2018-03-04 03:17] LABS: HEMOGLOBIN A1C 6.2 % (4.8-5.6)
--- NOTE | 2018-03-05 09:27 | DS ---
DATE OF DISCHARGE: 03/03/2018 CHIEF COMPLAINT: Loss of consciousness. HISTORY OF PRESENT ILLNESS: The patient is a 72-year-old female that presented to the Emergency Room with the above complaint. She reported that she had been playing cards at home on the evening prior to admission. She said that she felt somewhat hot and she got up to go outside. She apparently had a brief loss of consciousness while outside. People were around her and she regained consciousness quickly, but had no memory of the event. She was brought to the Emergency Room. Initial evaluation there was unremarkable and she was admitted for further evaluation. HOSPITAL COURSE: The patient was placed on telemetry where she remained in sinus rhythm. She had no other episodes of lightheadedness and felt back to her usual self. EKG was unremarkable as well as lab. She was seen in consultation by Dr. Schwartz. A tilt table test was done which was negative. The patient also had an echocardiogram, which showed a preserved ejection fraction of 60%, mild diastolic dysfunction and no other significant abnormalities. The patient's chronic medical conditions including diabetes, hypertension, hyperlipidemia were well controlled with her home medications. She had an abnormal urinalysis at admission and was treated for a possible urinary tract infection, but final urine culture showed only the growth of normal urogenital lavonne and therefore, no further antibiotic was indicated. The patient stated that she felt fine and was ready for discharge home. FINAL DIAGNOSES: 1. Vasovagal syncope. 2. Diabetes mellitus type 2. 3. Hypertension. 4. Hyperlipidemia. DISCHARGE MEDICATIONS: Glimepiride 4 mg b.i.d., amlodipine/valsartan 10/320 one daily, simvastatin 20 mg daily, vitamin D 50,000 units weekly, metoprolol tartrate 100 mg b.i.d., metformin 1000 mg b.i.d., pioglitazone 15 mg daily, hydrochlorothiazide 25 mg daily. FOLLOWUP: With Dr. England within 2 weeks. VELMA ENGLAND MD DR: RUTH/mariela JOB#: [id number] / [id number]
== END 2018-03-03 16:15 | disposition home or self-care (01) | DRG 690 ==
LOC: ER 20:59 → 4 NORTH 03-02 01:50
PROVIDERS: ADMIT Family Medicine; ATTEND Family Medicine
DX: N39.0 Urinary tract infection, site not specified (principal); E11.9 Type 2 diabetes mellitus without complications; I10 Essential (primary) hypertension; E78.5 Hyperlipidemia, unspecified; E55.9 Vitamin D deficiency, unspecified; E66.9 Obesity, unspecified; F17.210 Nicotine dependence, cigarettes, uncomplicated; M19.90 Unspecified osteoarthritis, unspecified site; J44.9 Chronic obstructive pulmonary disease, unspecified; Z90.49 Acquired absence of other specified parts of digestive tract; Z68.33 Body mass index [BMI] 33.0-33.9, adult; R55 Syncope and collapse
CPT/HCPCS: 36415; 70450; 71045; 80053; 80061; 81001; 82553; 82962; 83036; 83735; 84443; 84484; 85025; 87086; 93005; 93306; 93660; 96360; J0696; J1815; J7030; 99285-25

== ENCOUNTER → 2021-03-29 | Outpatient (CLI) | payer MEDICARE, MEDICAID ==
--- NOTE | 2021-03-29 16:16 | RAD ---
EXAM: CT CHEST WITHOUT CONTRAST (LDCT LUNG CANCER SCREENING). HISTORY: Cigarette smoking history. Lung cancer screening. TECHNIQUE: CT of the chest was performed without intravenous contrast using a low-dose lung screening protocol. Findings analysis is based on ACR Lung-RADS v1.1. *One or more of the following individual ized dose reduction techniques were utilized for this examination: 1. Automated exposure control. 2. Adjustment of the mA and/or kV according to patient size. 3. Use of iterative reconstruction technique. COMPARISON: None. FINDINGS: The heart is mildly enlarged. There is calcified atherosclerotic plaque involving the aorta , aortic arch great vessels and coronary arteries. There are multiple enlarged mediastinal lymph node s. For reference purposes, there is a 1.6 cm right paratracheal lymph node, 1.8 cm prevascular lymph node and 2.1 cm precarinal lymph node. There is no pneumothorax or pleural effusion. There is mild em physema. There is bilateral posterior dependent and basilar atelectasis. There is a 3 mm nodular opacity within the medial right lower lobe likely due to volume averaging of an adjacent pulmonary vessel. There is a 3 mm nodule within the right minor pleural fissure, likely d ue to a fissural lymph node. There is a 3 mm pleural-based nodule within the anterior left upper lobe (series 2, image 80) There is no acute finding involving the upper abdomen or osseous structures. There are degenerative c hanges throughout the thoracic spine. IMPRESSION/RECOMMENDATION: 1. Tiny bilateral pulmonary nodules measuring up to 3 mm. ACR Lung-RADS category: 2. Annual low dose lung cancer screening CT in 12 months is recommended. 2. Mild emphysema with superimposed lower lobe predominant atelectasis or pleural-parenchymal scarrin g. 3. Prominent mediastinal lymph nodes. These may be physiologic or reactive in etiology. Attention the time of follow-up is recommended to confirm stability or resolution. 4. Mild cardiomegaly. Electronically signed by: Kira Elizondo MD (03/29/2021 4:14 PM) [id number]
== END ==
LOC: CT 14:46
PROVIDERS: ATTEND Family Medicine
DX: Z12.2 Encounter for screening for malignant neoplasm of respiratory organs (principal); R91.8 Other nonspecific abnormal finding of lung field; J43.9 Emphysema, unspecified; I51.7 Cardiomegaly; I25.10 Atherosclerotic heart disease of native coronary artery without angina pectoris; F17.210 Nicotine dependence, cigarettes, uncomplicated; R59.0 Localized enlarged lymph nodes
CPT/HCPCS: 71271